=== PATIENT | male | born 1940 | race Caucasian/White ===

== ENCOUNTER 2018-12-05 13:47 | Emergency (ER) | payer MEDICARE ==
[~2018-12-05] VITALS: Ht 172.7 cm; Wt 86.2 kg
[~2018-12-05 13:47] MED LIST: ACTOPLUS MET PO; ASPI325 PO; ATOR20 PO; GABA300 PO; Humalog100 UNIT/1 SC; INSULANPEN SC; LOSA50 PO; METO50 PO; PIOGLITAZONE-M1 EAC1 PO; SAXA2.5T; SAXA2.5T PO
[2018-12-05] MEDS ORDERED: Hydrochloroth12.5 MG PO (14:31)
[2018-12-05] MEDS ORDERED: INSR10I (14:31)
[2018-12-05] MEDS ORDERED: Metformin HCl850 MG PO (14:32)
[2018-12-05] MEDS ORDERED: Roxicodone5 MG PO (16:27)
== END 2018-12-05 16:46 | disposition home or self-care (01) ==
LOC: ER 13:47
DX: S76.111A Strain of right quadriceps muscle, fascia and tendon, initial encounter (principal); E11.9 Type 2 diabetes mellitus without complications; I10 Essential (primary) hypertension; I25.10 Atherosclerotic heart disease of native coronary artery without angina pectoris; Z79.899 Other long term (current) drug therapy; Z79.4 Long term (current) use of insulin; Z79.82 Long term (current) use of aspirin; Z87.891 Personal history of nicotine dependence; W01.0XXA Fall on same level from slipping, tripping and stumbling without subsequent striking against object, initial encounter
CPT/HCPCS: 29505; 73562-RT; 99283-25